=== PATIENT | male | born 1935 | race Caucasian/White ===

== ENCOUNTER 2019-04-23 14:52 | Observation (INO) | payer MEDICARE ==
[~2019-04-23] VITALS: Ht 172.7 cm; Wt 65.0 kg
--- NOTE | 2019-04-23 15:12 | NUR ---
TO CT WITH PATIENT AT THIS TIME.
--- NOTE | 2019-04-23 15:15 | NUR ---
Verbal consent received from patient for neuro telemedicine consult.
[2019-04-23 15:18] LABS: BASOPHILS # (AUTO) 0.1 X10'3 (0-0.2); BASOPHILS % (AUTO) 0.9 % (0-1); EOSINOPHILS # (AUTO) 0.3 X10'3 (0-0.9); EOSINOPHILS % (AUTO) 3.8 % (0-6); HEMATOCRIT 36.6 % (42.0-52.0); LYMPHOCYTES # (AUTO) 1.5 X10'3 (1.1-4.8); LYMPHOCYTES % (AUTO) 18.7 % (21-51); MEAN CORPUSCULAR HEMOGLOBIN 31.4 PG (27.0-31.0); MEAN CORPUSCULAR HGB CONC 35.6 g/dL (33.0-36.5); MEAN CORPUSCULAR VOLUME 88.1 FL (78-98); MEAN PLATELET VOLUME 6.7 FL (7.4-10.4); MONOCYTES # (AUTO) 0.6 X10'3 (0-0.9); MONOCYTES % (AUTO) 7.5 % (2-12); NEUTROPHILS # (AUTO) 5.5 X10'3 (1.8-7.7); NEUTROPHILS % (AUTO) 69.1 % (42-75); PLATELET COUNT 243 X10'3 (140-440); RED BLOOD COUNT 4.16 X10'6 (4.70-6.10); RED CELL DISTRIBUTION WIDTH 13.2 % (11.5-14.5); WHITE BLOOD COUNT 7.9 X10'3 (4.5-11.0)
--- NOTE | 2019-04-23 15:23 | NUR ---
PATIENT BACK FROM CT AT THIS TIME, STROKE RN ESTER AT BEDSIDE. DR WALDRON TO ASSESS PATIENT, AT BEDSIDE, NO SIGNS OF DISTRESS NOTED.
[2019-04-23 15:35] LABS: PARTIAL THROMBOPLASTIN TIME 30 SECONDS (22-32)
[2019-04-23] MEDS ORDERED: aspirin 325mg tablet PO ONE (15:50)
[2019-04-23 15:54] LABS: ALANINE AMINOTRANSFERASE 27 U/L (12-78); ALBUMIN/GLOBULIN RATIO 1.2 (1.1-1.5); ALKALINE PHOSPHATASE 104 IU/L (46-116); ANION GAP 4 (8-16); ASPARTATE AMINO TRANSFERASE 19 U/L (10-37); BILIRUBIN,TOTAL 0.6 MG/DL (0.1-1.0); BLOOD UREA NITROGEN 13 MG/DL (7-18); CALCIUM 8.9 MG/DL (8.5-10.1); CHLORIDE 95 MMOL/L (99-107); GLUCOSE 196 MG/DL (70-104); POTASSIUM 3.8 MMOL/L (3.5-5.1); SODIUM 129 MMOL/L (135-145); TOTAL CARBON DIOXIDE 29.9 MMOL/L (24-32); TOTAL PROTEIN 7.3 G/DL (6.4-8.2); TROPONIN I < 0.04 NG/ML (0.0-0.05); eGFR 72 ML/MIN
[2019-04-23] MEDS ORDERED: CAPT12.53 PEG (16:09)
--- NOTE | 2019-04-23 16:09 | NUR ---
Patient states he took x6 baby aspirin this AM.
[2019-04-23] MEDS ORDERED: mag hydrox/Alum hydrox/simeth 30ml oral suspension PO PRN (16:10)
[2019-04-23] MEDS ORDERED: ondansetron/PF 4mg/2ml inj IV PRN (16:10)
[2019-04-23] MEDS ORDERED: magnesium hydroxide 30ml (MOM) UD suspension PO PRN (16:10)
[2019-04-23] MEDS ORDERED: morphine 2 MG/ML inj. syringe IV PRN ×2 (16:10)
[2019-04-23] MEDS ORDERED: HYDROcodone/acetaminophen 5mg/325mg tablet PO PRN (16:10)
[2019-04-23] MEDS ORDERED: acetaminophen 325mg tablet PO PRN ×2 (16:10)
[2019-04-23] MEDS ORDERED: TIMO5DRO32 EACHEYE (16:19)
[2019-04-23] MEDS ORDERED: labetalol 20mg/4ml (5mg/ml) syringe IV PRN (17:25)
[2019-04-23 17:28] LABS: HEMOGLOBIN A1C 5.3 % (4.5-6.2)
[2019-04-23 17:40] VITALS: BP 156/60
[2019-04-23] MEDS: normal saline 1000ml 1,000 ML IV SCH (20:31)
[2019-04-23] MEDS: traMADol 50MG tablet PO PRN (21:02)
[2019-04-23 21:45] VITALS: BP_SYST 139; BP_SYST 143; BP_SYST 164; BP_DIAS 46; BP_DIAS 65; BP_DIAS 72
--- NOTE | 2019-04-24 00:53 | NUR ---
breaking [facility] for lunch. phoned Maria Ines to continue pt glaucoma eye drops, he said to order them to be continued.
[2019-04-24 02:15] VITALS: BP 111/39
[2019-04-24 06:00] VITALS: BP_SYST 116; BP_SYST 161; BP_SYST 165; BP_SYST 172; BP_DIAS 44; BP_DIAS 71; BP_DIAS 73; BP_DIAS 78
[2019-04-24 06:10] LABS: BASOPHILS % (AUTO) 0.8 % (0-1); EOSINOPHILS # (AUTO) 0.3 X10'3 (0-0.9); EOSINOPHILS % (AUTO) 4.4 % (0-6); HEMATOCRIT 33.8 % (42.0-52.0); LYMPHOCYTES # (AUTO) 1.2 X10'3 (1.1-4.8); LYMPHOCYTES % (AUTO) 20.8 % (21-51); MEAN CORPUSCULAR HEMOGLOBIN 31.8 PG (27.0-31.0); MEAN CORPUSCULAR HGB CONC 35.5 g/dL (33.0-36.5); MEAN CORPUSCULAR VOLUME 89.7 FL (78-98); MEAN PLATELET VOLUME 6.6 FL (7.4-10.4); MONOCYTES # (AUTO) 0.7 X10'3 (0-0.9); MONOCYTES % (AUTO) 11.3 % (2-12); NEUTROPHILS # (AUTO) 3.7 X10'3 (1.8-7.7); NEUTROPHILS % (AUTO) 62.7 % (42-75); PLATELET COUNT 199 X10'3 (140-440); RED BLOOD COUNT 3.77 X10'6 (4.70-6.10); RED CELL DISTRIBUTION WIDTH 13.1 % (11.5-14.5); WHITE BLOOD COUNT 5.8 X10'3 (4.5-11.0)
[2019-04-24 06:25] LABS: ALBUMIN 3.4 G/DL (3.4-5.0); ANION GAP 5 (8-16); BLOOD UREA NITROGEN 13 MG/DL (7-18); BUN/CREATININE RATIO 14.1 (5.4-32.0); CALCIUM 8.9 MG/DL (8.5-10.1); CHLORIDE 103 MMOL/L (99-107); CHOL/HDL RATIO 3.4 (0.00-4.99); CHOLESTEROL 148 MG/DL (0-200); CREATININE 0.92 MG/DL (0.60-1.10); GLUCOSE 102 MG/DL (70-104); HDL CHOLESTEROL 43 MG/DL (35-60); LDL CHOLESTEROL 98 MG/DL (50-100); POTASSIUM 4.5 MMOL/L (3.5-5.1); SODIUM 138 MMOL/L (135-145); TOTAL CARBON DIOXIDE 29.8 MMOL/L (24-32); TRIGLYCERIDES 68 MG/DL (20-135); eGFR 79 ML/MIN
[2019-04-24] MEDS: normal saline 1000ml 1,000 ML IV SCH ×3 (06:26→12:55)
--- NOTE | 2019-04-24 06:36 | NUR ---
reported to days. noted pt walking with PT. vegetarian diet ordered for pt. anticipate MRI and carotids today
[2019-04-24] MEDS ORDERED: timolol 0.5% ophthalmic solution 5ml bottle EACHEYE SCH (08:00)
[2019-04-24] MEDS ORDERED: aspirin 81mg tablet.DR PO SCH (08:00)
[2019-04-24 10:00] VITALS: BP 131/50
--- NOTE | 2019-04-24 10:21 | NUR ---
SPOKE WITH DR VILLASEÑOR REGARDING CANCELLATION OF MRI/MRA. INFORMED THAT THIS WAS RECOMMENDED BY NEUROLOGIST AFTER CONSULT OBTAINED FROM SOC AND RECOMMENDATION IN CHART FOR HIS REVIEW. HE PREFERS TO FOLLOW HIS PLAN AND NO FURTHER ORDERS OBTAINED.
[2019-04-24] MEDS ORDERED: iohexol 350MG/ML 100ml bottle IV ONE (12:43)
[2019-04-24 14:00] VITALS: BP 140/51
[2019-04-24] MEDS ORDERED: ATOR10TA PO (15:34)
[2019-04-24] MEDS ORDERED: ASPI-1071 PO (15:34)
[2019-04-24] MEDS: traMADol 50MG tablet PO PRN (15:35)
[2019-04-24] MEDS ORDERED: TRAM50TA2 PO (15:49)
--- NOTE | 2019-04-24 17:29 | NUR ---
Patient discharged, iv taken out will come back for the tramadol prescription tomorrow.
== END 2019-04-24 16:45 | disposition home or self-care (01) ==
LOC: ER 14:53 → ORTHO 4S 17:54
PROVIDERS: ADMIT Internal Medicine; ATTEND Internal Medicine
DX: G45.9 Transient cerebral ischemic attack, unspecified (principal); M19.90 Unspecified osteoarthritis, unspecified site; I10 Essential (primary) hypertension; G89.29 Other chronic pain; E11.9 Type 2 diabetes mellitus without complications
CPT/HCPCS: 36415; 70450; 70496; 70498; 71045; 80048; 80053; 80061; 82948; 83036; 83880; 84484; 85025; 85610; 85651; 85730; 87081; 92508; 92616; 93005; 93306; 93880; 97116; 97162; 97530; 99291; G0378; J7030; Q9967

== ENCOUNTER 2021-01-24 10:06 | Emergency (ER) | payer MEDICARE, OTHER ==
[~2021-01-24] VITALS: Ht 172.7 cm; Wt 67.2 kg
[~2021-01-24 10:06] MED LIST: ASPI-1071 PO; ATOR10TA PO; CAPT12.53 PEG; TIMO5DRO32 EACHEYE; TRAM50TA2 PO
[2021-01-24] MEDS ORDERED: hydrALAZINE 20mg/ml inj. IV ONE (12:35)
[2021-01-24 13:11] LABS: BASOPHILS # (AUTO) 0.1 X10'3 (0-0.2); BASOPHILS % (AUTO) 0.9 % (0-1); EOSINOPHILS # (AUTO) 0.2 X10'3 (0-0.9); EOSINOPHILS % (AUTO) 2.7 % (0-6); HEMATOCRIT 43.6 % (42.0-52.0); HEMOGLOBIN 14.9 g/dl (14.0-17.9); LYMPHOCYTES # (AUTO) 1.5 X10'3 (1.1-4.8); LYMPHOCYTES % (AUTO) 20.8 % (21-51); MEAN CORPUSCULAR HEMOGLOBIN 31.3 PG (27.0-31.0); MEAN CORPUSCULAR HGB CONC 34.2 g/dL (33.0-36.5); MEAN CORPUSCULAR VOLUME 91.5 FL (78-98); MEAN PLATELET VOLUME 7.1 FL (7.4-10.4); MONOCYTES # (AUTO) 0.6 X10'3 (0-0.9); MONOCYTES % (AUTO) 8.7 % (2-12); NEUTROPHILS # (AUTO) 4.8 X10'3 (1.8-7.7); NEUTROPHILS % (AUTO) 66.9 % (42-75); PLATELET COUNT 182 X10'3 (140-440); RED BLOOD COUNT 4.76 X10'6 (4.70-6.10); RED CELL DISTRIBUTION WIDTH 13.1 % (11.5-14.5); WHITE BLOOD COUNT 7.1 X10'3 (4.5-11.0)
[2021-01-24 13:22] LABS: ALANINE AMINOTRANSFERASE 46 U/L (12-78); ALBUMIN 4.8 G/DL (3.4-5.0); ALBUMIN/GLOBULIN RATIO 1.3 (1.1-1.5); ALKALINE PHOSPHATASE 100 IU/L (46-116); ANION GAP 10 (8-16); ASPARTATE AMINO TRANSFERASE 48 U/L (10-37); BILIRUBIN,TOTAL 0.9 MG/DL (0.1-1.0); BLOOD UREA NITROGEN 5 MG/DL (7-18); BUN/CREATININE RATIO 5.4 (5.4-32.0); CALCIUM 9.6 MG/DL (8.5-10.1); CHLORIDE 99 MMOL/L (99-107); CREATININE 0.92 MG/DL (0.60-1.10); GLUCOSE 126 MG/DL (70-104); POTASSIUM 4.5 MMOL/L (3.5-5.1); SODIUM 135 MMOL/L (135-145); TOTAL CARBON DIOXIDE 26.3 MMOL/L (24-32); TOTAL PROTEIN 8.4 G/DL (6.4-8.2); eGFR 78 ML/MIN
[2021-01-24 13:26] LABS: TROPONIN I < 0.04 NG/ML (0.0-0.05)
[2021-01-24 14:19] VITALS: BP 142/64
== END 2021-01-24 14:28 | disposition home or self-care (01) ==
LOC: ER 10:07
DX: I10 Essential (primary) hypertension (principal); G89.29 Other chronic pain; Z79.82 Long term (current) use of aspirin; Z79.899 Other long term (current) drug therapy
CPT/HCPCS: 36415; 71045; 80053; 84484; 85025; 93005; 96374; 99285; J0360